=== PATIENT | female | born 1940 | race Caucasian/White ===

== ENCOUNTER → 2017-01-09 | Outpatient (CLI) | payer MEDICARE ==
[~2017-01-09] MED LIST: ASA CHILDREN'S81 MG PO; ASA325 MG PO; FEOSOL-DPS325 MG PO; HYDRODIURIL-DPS25 MG PO; OXY IR DPS5 MG PO; PROTONIX40 MG PO; TYLENOL DPS325 MG PO; TYLENOL EXTRA500 M1 PO; VITAMIN D-32000 UNI1 PO; ZOCOR DPS20 MG PO
== END | disposition home or self-care (01) ==
LOC: RAD.S 09:39
DX: Z12.31 Encounter for screening mammogram for malignant neoplasm of breast (principal); N63 Unspecified lump in breast